=== PATIENT | female | born 1970 | race Caucasian/White ===

== ENCOUNTER → 2016-10-31 | Outpatient (CLI) | payer OTHER ==
[2016-10-31 18:12] LABS: MEAN CORPUSCULAR HEMOGLOBIN 32.1 pg (27.0-33.0); MEAN CORPUSCULAR HGB CONC 33.7 g/dl (32.0-36.5); MEAN CORPUSCULAR VOLUME 95.2 fl (80.0-96.0); WHITE BLOOD COUNT 6.3 K/mm3 (4.0-10.0)
[2016-10-31 19:18] LABS: ALBUMIN 3.2 GM/DL (3.2-5.2); ALBUMIN/GLOBULIN RATIO 0.89 (1.00-1.93); ALKALINE PHOSPHATASE 86 U/L (45-117); ALT/SGPT 15 U/L (12-78); ANION GAP 11 MEQ/L (8-16); AST/SGOT 12 U/L (15-37); BILIRUBIN,TOTAL 0.4 MG/DL (0.2-1.0); BLOOD UREA NITROGEN 12 MG/DL (7-18); CALCIUM LEVEL 8.6 MG/DL (8.5-10.1); CARBON DIOXIDE LEVEL 25 MEQ/L (21-32); CHLORIDE LEVEL 108 MEQ/L (98-107); CHOLESTEROL LEVEL 165 MG/DL (<200); CREATININE FOR GFR 0.85 MG/DL (0.55-1.02); GLOMERULAR FILTRATION RATE > 60.0 (>58); GLUCOSE, FASTING 95 MG/DL (70-105); POTASSIUM SERUM 4.3 MEQ/L (3.5-5.1); SODIUM LEVEL 144 MEQ/L (136-145); TOTAL PROTEIN 6.8 GM/DL (6.4-8.2); TRIGLYCERIDES LEVEL 113 MG/DL (<150)
== END ==
LOC: M WUC 08:26
PROVIDERS: ATTEND Nurse Practitioner Family
DX: I10 Essential (primary) hypertension (principal)

== ENCOUNTER → 2016-12-09 | Outpatient (CLI) | payer OTHER ==
--- NOTE | 2016-12-09 16:28 | REPMRS ---
Patient History The patient states she has not had a clinical breast exam in over a year. Patient has had a 10 pound weight loss since her last mammo..(intentional)Family history of prostate cancer in maternal grandfather at age 60 and ovarian cancer in maternal aunt at age 60. Taking estrogen for 6 years. Digital Mammo Screening Bilat: December 09, 2016 - Exam #: [id number] Bilateral CC and MLO view(s) were taken. Technologist: Lillie Solorzano, Technologist Prior study comparison: December 05, 2015, bilateral digital mammo screening bilat performed at [facility]. FINDINGS: The breast tissue is heterogeneously dense. This may lower the sensitivity of mammography. There has been no change in the appearance of the mammogram from the prior studies. There is a moderate amount of residual fibroglandular tissue which is fairly symmetric. There is no interval development of dominant mass, areas of architectural distortion, or clustered microcalcification typical of malignancy. ASSESSMENT: BI-RADS/ACR category 1 mammogram. Negative. Recommendation Routine screening mammogram in 1 year (for women over age 40). This mammogram was interpreted with the aid of an FDA-approved computer-aided dectection system. Electronically Signed By: Tomi Moran MD 12/09/16 [id number]
== END ==
LOC: M RAD 15:59
PROVIDERS: ATTEND Physician Assistant
DX: Z12.4 Encounter for screening for malignant neoplasm of cervix (principal)

== ENCOUNTER → 2017-12-28 | Outpatient (CLI) | payer OTHER ==
[2017-12-28 07:07] LABS: HEMATOCRIT 40.6 % (36.0-47.0); HEMOGLOBIN 13.7 g/dl (12.0-15.5); MEAN CORPUSCULAR HEMOGLOBIN 31.9 pg (27.0-33.0); MEAN CORPUSCULAR HGB CONC 33.7 g/dl (32.0-36.5); MEAN CORPUSCULAR VOLUME 94.4 fl (80.0-96.0); PLATELET COUNT, AUTOMATED 253 10^3/uL (150-450); RED CELL DISTRIBUTION WIDTH 12.7 % (11.5-14.5); WHITE BLOOD COUNT 7.2 10^3/uL (4.0-10.0)
[2017-12-28 07:31] LABS: ALBUMIN 3.3 GM/DL (3.2-5.2); ALBUMIN/GLOBULIN RATIO 0.89 (1.00-1.93); ALKALINE PHOSPHATASE 86 U/L (45-117); ALT/SGPT 15 U/L (12-78); ANION GAP 7 MEQ/L (8-16); AST/SGOT 17 U/L (7-37); BILIRUBIN,TOTAL 0.4 MG/DL (0.2-1.0); BLOOD UREA NITROGEN 14 MG/DL (7-18); CALCIUM LEVEL 8.5 MG/DL (8.5-10.1); CARBON DIOXIDE LEVEL 23 MEQ/L (21-32); CHLORIDE LEVEL 111 MEQ/L (98-107); CHOLESTEROL LEVEL 150 MG/DL (<200); CHOLESTEROL RISK RATIO 2.678 (<5); CREATININE FOR GFR 0.88 MG/DL (0.55-1.30); GLOMERULAR FILTRATION RATE > 60.0 (>58); GLUCOSE, FASTING 96 MG/DL (70-100); HDL CHOLESTEROL 56 MG/DL (>40); LDL CHOLESTEROL 68.6 MG/DL (<100); NON-HDL-C 94 MG/DL; POTASSIUM SERUM 4.6 MEQ/L (3.5-5.1); SODIUM LEVEL 141 MEQ/L (136-145); TRIGLYCERIDES LEVEL 127 MG/DL (<150)
== END ==
LOC: M LAB 06:29
DX: I10 Essential (primary) hypertension (principal)
CPT/HCPCS: 80053

== ENCOUNTER → 2018-01-02 | Outpatient (CLI) | payer OTHER | LOC: M RAD 16:31 | DX: Z12.31 Encounter for screening mammogram for malignant neoplasm of breast (principal) | CPT/HCPCS: 77067 ==

== ENCOUNTER → 2020-02-05 | Outpatient (CLI) | payer OTHER ==
[~2020-02-05] MED LIST: RAMI1CAP24 PO
== END ==
LOC: M LABSMTC 11:01
PROVIDERS: ATTEND Anesthesiology
DX: Z03.818 Encounter for observation for suspected exposure to other biological agents ruled out (principal); Z11.59 Encounter for screening for other viral diseases
CPT/HCPCS: C9803; U0003

== ENCOUNTER 2020-02-08 07:03 | Day surgery (SDC) | payer OTHER ==
[~2020-02-08] VITALS: Ht 167.6 cm; Wt 107.5 kg
[~2020-02-08 07:03] MED LIST changes: +NS 1,000 ML IV ONE
[2020-02-08] MEDS ORDERED: propofoL 200 MG/20 ML VIAL As Ordered ONE ×2 (08:08→08:15)
[2020-02-08] MEDS ORDERED: LIDOCAINE 2% 100MG/5ML SDV (FOR ANES.) As Ordered ONE (08:08)
--- NOTE | 2020-02-08 08:37 | ROOR ---
Patient Name: Yeimy Rodriguez Procedure Date: 02/08/2020 8:00 AM Date of : 1970 Age: 49 Room: [facility] Gender: Female Note Status: Finalized Procedure: Colonoscopy Indications: Screening for colorectal malignant neoplasm Providers: Ariel CARD MD Referring MD: JI VOGEL MD Requesting Provider: Medicines: Monitored Anesthesia Care Complications: No immediate complications. Procedure: Pre-Anesthesia Assessment: - The heart rate, respiratory rate, oxygen saturations, blood pressure, adequacy of pulmonary ventilation, and response to care were monitored throughout the procedure. The Colonoscope was introduced through the anus and advanced to the cecum, identified by appendiceal orifice and ileocecal valve. The colonoscopy was performed without difficulty. The patient tolerated the procedure well. The quality of the bowel preparation was good. Findings: The perianal and digital rectal examinations were normal. Two sessile polyps were found in the cecum and ileocecal valve. The polyps were 8 to 10 mm in size. These polyps were removed with a cold snare. Resection and retrieval were complete. A 5 mm polyp was found in the hepatic flexure. The polyp was sessile. The polyp was removed with a cold snare. Resection and retrieval were complete. A 10 mm polyp was found in the proximal sigmoid colon (Sigmoid is redundant. location is [address] in, [address]). The polyp was semi-pedunculated. The polyp was removed with a hot snare. Resection and retrieval were complete. To prevent bleeding after the polypectomy, two hemostatic clips were successfully placed. There was no bleeding at the end of the procedure. Impression: - Two 8 to 10 mm polyps in the cecum and at the ileocecal valve, removed with a cold snare. Resected and retrieved. - One 5 mm polyp at the hepatic flexure, removed with a cold snare. Resected and retrieved. - One 10 mm polyp in the proximal sigmoid colon, removed with a hot snare. Resected and retrieved. Clips were placed. - The examination was otherwise normal on direct and retroflexion views. Recommendation: - Repeat colonoscopy in 3 years for surveillance. - No ibuprofen, naproxen, or other non-steroidal anti-inflammatory drugs for 10 days after polyp removal. Ariel Card MD Ariel CARD MD 02/08/2020 8:37:19 AM Electronically signed by Ariel CARD MD Number of Addenda: 0 Note Initiated On: 02/08/2020 8:00 AM Estimated Blood Loss: Estimated blood loss: none.
[2020-02-08 08:50] VITALS: BP 134/90
== END 2020-02-08 09:02 | disposition home or self-care (01) ==
LOC: M OPP 07:03
PROVIDERS: ATTEND Internal Medicine Gastroenterology
DX: Z12.11 Encounter for screening for malignant neoplasm of colon (principal); D12.0 Benign neoplasm of cecum; D12.3 Benign neoplasm of transverse colon; D12.5 Benign neoplasm of sigmoid colon; Z79.82 Long term (current) use of aspirin; Z79.899 Other long term (current) drug therapy; Z88.2 Allergy status to sulfonamides; Z88.8 Allergy status to other drugs, medicaments and biological substances

== ENCOUNTER → 2021-08-20 | Outpatient (CLI) | payer OTHER ==
[~2021-08-20] MED LIST changes: -NS 1,000 ML IV ONE
[2021-08-20 10:22] LABS: HEMOGLOBIN 13.9 g/dl (12.0-15.5); MEAN CORPUSCULAR HEMOGLOBIN 31.3 pg (27.0-33.0); MEAN CORPUSCULAR HGB CONC 32.3 g/dl (32.0-36.5); MEAN CORPUSCULAR VOLUME 96.8 fl (80.0-96.0); PLATELET COUNT, AUTOMATED 253 10^3/uL (150-450); RED BLOOD COUNT 4.44 10^6/uL (4.00-5.40); WHITE BLOOD COUNT 5.9 10^3/uL (4.0-10.0)
[2021-08-20 10:51] LABS: ALBUMIN 3.8 GM/DL (3.2-5.2); ALT/SGPT 19 U/L (12-78); BILIRUBIN,TOTAL 0.4 MG/DL (0.2-1.0); BLOOD UREA NITROGEN 14 MG/DL (7-18); CALCIUM LEVEL 9.3 MG/DL (8.5-10.1); CARBON DIOXIDE LEVEL 29 MEQ/L (21-32); CHLORIDE LEVEL 107 MEQ/L (98-107); CHOLESTEROL LEVEL 177 MG/DL (<200); CHOLESTEROL RISK RATIO 3.403 (<5); CREATININE FOR GFR 0.93 MG/DL (0.55-1.30); FREE T3 3.2 PG/ML (2.2-4.0); FREE T4 1.08 NG/DL (0.76-1.46); GLOMERULAR FILTRATION RATE > 60.0 (>51); GLUCOSE, FASTING 110 MG/DL (70-100); HDL CHOLESTEROL 52 MG/DL (>40); LDL CHOLESTEROL 105 MG/DL (<100); NON-HDL-C 125 MG/DL; POTASSIUM SERUM 4.5 MEQ/L (3.5-5.1); SODIUM LEVEL 140 MEQ/L (136-145); TOTAL PROTEIN 7.3 GM/DL (6.4-8.2); TRIGLYCERIDES LEVEL 102 MG/DL (<150)
[2021-08-20 11:46] LABS: TOTAL 25(OH) VITAMIN D 22.4 NG/ML (30.0-100.0)
== END ==
LOC: M WUC 08:04
PROVIDERS: ATTEND Registered Nurse
DX: E78.2 Mixed hyperlipidemia (principal)